=== PATIENT | female | born 1970 | race Hispanic/Latino ===

== ENCOUNTER 2021-08-19 07:36 | Observation (INO) | payer MEDICAID ==
[2021-08-17 16:35] LABS: BASOPHILS % (AUTO) 0.5 % (0.0-5.0); EOSINOPHILS % (AUTO) 1.8 % (0.0-8.0); HEMATOCRIT 40.2 % (36-48); LYMPHOCYTES % (AUTO) 30.5 % (21.0-51.0); MEAN CORPUSCULAR HEMOGLOBIN 31.3 pg (27.0-33.0); MEAN CORPUSCULAR HGB CONC 35.6 g/dL (32.0-36.0); MONOCYTES % (AUTO) 3.3 % (3.0-13.0); NEUTROPHILS % (AUTO) 63.6 % (40.0-77.0); PLATELET COUNT (AUTO) 316 K/uL (130-400); RED BLOOD CELL COUNT(AUTO) 4.57 MIL/uL (4.00-5.50); RED CELL DISTRIBUTION WIDTH 12.6 % (11.0-15.5); WHITE BLOOD COUNT (AUTO) 8.8 K/uL (4.8-10.8)
[2021-08-18 08:50] VITALS: BP 98/64
[~2021-08-19] VITALS: Ht 172.7 cm; Wt 105.4 kg
[2021-08-19] VITALS (19 sets, daily range): BP systolic 82–132; BP diastolic 44–77
[~2021-08-19 07:36] MED LIST: SERT20OR PO
[2021-08-19] MEDS ORDERED: LACTATED RINGERS 1000ML 1,000 ML IV SCH (08:00)
[2021-08-19] MEDS ORDERED: CEFAZOLIN SODIUM 1 GM VIAL IVP ONE (08:00)
[2021-08-19] MEDS ORDERED: LIDOCAINE PF 100MG/5ML (2%) SYRINGE 5ML ONE (11:11)
[2021-08-19] MEDS ORDERED: ONDANSETRON 4MG INJ ONE (11:11)
[2021-08-19] MEDS ORDERED: PROPOFOL 10 MG/ML 20ML VIAL IV ONE ×2 (11:11→12:07)
[2021-08-19] MEDS ORDERED: FENTANYL CITRATE PF 50 MCG/1 ML 5ML AMP IV ONE ×2 (11:12→12:18)
[2021-08-19] MEDS ORDERED: ROCURONIUM 10MG/1ML SYR 10 MG/ML ML ONE (11:12)
[2021-08-19] MEDS ORDERED: MIDAZOLAM HCL 1 MG/ML 2ML VIAL ONE (11:13)
[2021-08-19] MEDS ORDERED: MEPERIDINE-PF 25 MG/ML SYG ONE (11:42)
[2021-08-19] MEDS ORDERED: PHENYLEPHRINE HCL 10 MG/ML 1ML VIAL IV ONE (12:07)
[2021-08-19] MEDS ORDERED: ESTROGENS,CONJUGATED 0.625 MG/GM 42.5 GM VAG CRM VG ONE (12:07)
[2021-08-19] MEDS ORDERED: NEOSTIGMINE 5MG/5ML SYR IV ONE (12:14)
[2021-08-19] MEDS ORDERED: GLYCOPYRROLATE 1 MG/5 ML SYRINGE ONE (12:14)
[2021-08-19] MEDS ORDERED: DOCUSATE SODIUM 100 MG CAP PO PRN (15:00)
[2021-08-19] MEDS ORDERED: BISACODYL 10 MG SUPP.RECT RC PRN (15:00)
[2021-08-19] MEDS ORDERED: HYDROCODONE/ACETAMINOPHEN 5/325 MG TAB PO PRN (15:00)
[2021-08-19] MEDS ORDERED: SIMETHICONE 80 MG TAB.CHEW PO PRN (15:00)
[2021-08-19] MEDS ORDERED: IBUPROFEN 800 MG TAB PO PRN (15:00)
[2021-08-19] MEDS ORDERED: ACETAMINOPHEN WITH CODEINE 1 TAB TAB PO PRN (15:00)
== END 2021-08-19 16:10 | disposition home or self-care (01) ==
LOC: DAH 07:36 → DAHIP 07:37 → DAH 07:37 → WSH 13:50
PROVIDERS: ADMIT Obstetrics & Gynecology; ATTEND Obstetrics & Gynecology
DX: N81.6 Rectocele (principal); Z20.822 Contact with and (suspected) exposure to COVID-19; F31.9 Bipolar disorder, unspecified; F41.1 Generalized anxiety disorder; K21.9 Gastro-esophageal reflux disease without esophagitis; I10 Essential (primary) hypertension; E78.00 Pure hypercholesterolemia, unspecified; J45.909 Unspecified asthma, uncomplicated; E66.9 Obesity, unspecified; Z68.35 Body mass index [BMI] 35.0-35.9, adult; Z79.899 Other long term (current) drug therapy; Z98.890 Other specified postprocedural states
CPT/HCPCS: 36415; 57250; 82948; 85025; 86850; 86900; 86901; 87635; A4215; A4221; A4222; A4223; A4344; A4351; A4663; A5113; A6260; C1769; C9803; G0378 ×3; J0690; J2175; J2250; J2370; J2405; J2710; J3010 ×2; J3490 ×4; J7120; J2001; J2704

== ENCOUNTER 2021-09-01 00:59 | Emergency (ER) | payer MEDICAID ==
[~2021-09-01] VITALS: Ht 172.7 cm; Wt 105.2 kg
[2021-09-01] MEDS ORDERED: ONDANSETRON 4MG INJ IVP ONE (01:30)
[2021-09-01] MEDS ORDERED: LACTATED RINGERS 1000ML 1,000 ML IV ONE ×2 (01:30→02:54)
[2021-09-01] MEDS ORDERED: MORPHINE 4 MG SYG IVP ONE (01:30)
[2021-09-01 01:55] LABS: BASOPHILS % (AUTO) 0.4 % (0.0-5.0); EOSINOPHILS % (AUTO) 4.3 % (0.0-8.0); HEMATOCRIT 34.9 % (36-48); LYMPHOCYTES % (AUTO) 28.1 % (21.0-51.0); MEAN CORPUSCULAR HEMOGLOBIN 30.7 pg (27.0-33.0); MEAN CORPUSCULAR HGB CONC 33.5 g/dL (32.0-36.0); MEAN CORPUSCULAR VOLUME 91.6 fL (79-99); MONOCYTES % (AUTO) 6.8 % (3.0-13.0); PLATELET COUNT (AUTO) 294 K/uL (130-400); RED BLOOD CELL COUNT(AUTO) 3.81 MIL/uL (4.00-5.50); RED CELL DISTRIBUTION WIDTH 12.6 % (11.0-15.5); WHITE BLOOD COUNT (AUTO) 7.5 K/uL (4.8-10.8)
[2021-09-01 02:05] LABS: CREATININE 0.6 mg/dL (0.5-1.5); POTASSIUM 4.2 mmol/L (3.5-5.1)
[2021-09-01 02:09] LABS: ALBUMIN 2.9 g/dL (3.5-5.0); BILIRUBIN,TOTAL 0.1 mg/dL (0.2-1.0); TOTAL PROTEIN, SERUM 5.9 g/dL (6.0-8.3)
[2021-09-01] MEDS ORDERED: ONDANSETRON 4MG INJ ONE (02:52)
[2021-09-01] MEDS ORDERED: MORPHINE 4 MG SYG ONE (02:53)
[2021-09-01 03:45] LABS: APPEARANCE,URINE Clear (CLEAR); BILIRUBIN,URINE Negative (NEGATIVE); COLOR,URINE Yellow (YELLOW); GLUCOSE, URINE (UA) Negative (NEGATIVE); KETONES,URINE Negative (NEGATIVE); LEUKOCYTE ESTERASE ,URINE Moderate (NEGATIVE); NITRATE,URINE Negative (NEGATIVE); OCCULT BLOOD,URINE Trace (NEGATIVE); PROTEIN,URINE Negative (NEGATIVE); UROBILINOGEN,URINE 0.2 mg/dL (0.2-1.0)
[2021-09-01 04:00] LABS: BACTERIA,URINE Rare /HPF (None Seen); RBC,URINE 0-1 /HPF (0-1)
[2021-09-01 04:01] LABS: SQUAMOUS EPITHELIAL CELL,UR Few /HPF (0-2)
[2021-09-01] MEDS ORDERED: CEFTRIAXONE 1G VIAL ONE (04:40)
[2021-09-01] MEDS ORDERED: CEFTRIAXONE 1G VIAL IVP ONE (05:00)
[2021-09-01] MEDS ORDERED: CIPR-278 PO (05:03)
[2021-09-01] MEDS ORDERED: FAMO-136 PO (05:03)
[2021-09-01 05:27] VITALS: BP 116/67
== END 2021-09-01 05:25 | disposition home or self-care (01) ==
LOC: EDH 00:59
DX: N30.00 Acute cystitis without hematuria (principal); R11.10 Vomiting, unspecified; R10.13 Epigastric pain; R10.11 Right upper quadrant pain; E78.00 Pure hypercholesterolemia, unspecified; I10 Essential (primary) hypertension; Z90.49 Acquired absence of other specified parts of digestive tract; Z79.899 Other long term (current) drug therapy
CPT/HCPCS: 36415; 71045; 74176; 80053; 81001; 82550; 83690; 84484; 85025; 87088; 93005; 96361; 96374; 96375; 99285; J0696; J2270; J2405; J7120

== ENCOUNTER 2021-09-17 00:50 | Emergency (ER) | payer MEDICAID ==
[~2021-09-17] VITALS: Ht 172.7 cm; Wt 106.1 kg
[~2021-09-17 00:50] MED LIST changes: +CIPR-278 PO; +FAMO-136 PO
[2021-09-17 00:57] VITALS: BP 101/65
== END 2021-09-17 03:29 | disposition left against medical advice (07) ==
LOC: EDH 00:50
DX: R50.9 Fever, unspecified (principal); J02.9 Acute pharyngitis, unspecified; Z53.21 Procedure and treatment not carried out due to patient leaving prior to being seen by health care provider

== ENCOUNTER 2021-12-28 14:14 | Emergency (ER) | payer MEDICAID ==
[~2021-12-28] VITALS: Ht 172.7 cm; Wt 104.8 kg
[2021-12-28 14:19] VITALS: BP 128/77
== END 2021-12-28 15:49 | disposition left against medical advice (07) ==
LOC: EDH 14:14
DX: R05.9 Cough, unspecified (principal); M54.9 Dorsalgia, unspecified; Z53.21 Procedure and treatment not carried out due to patient leaving prior to being seen by health care provider
CPT/HCPCS: 71045; 87804; 93005

== ENCOUNTER 2022-02-16 23:35 | Emergency (ER) | payer MEDICAID ==
[~2022-02-16] VITALS: Ht 172.7 cm; Wt 104.8 kg
[2022-02-17 00:29] VITALS: BP 121/72
[2022-02-17] MEDS ORDERED: HYDROCODONE/ACETAMINOPHEN 10/325 MG TAB PO ONE (00:30)
[2022-02-17] MEDS ORDERED: KETOROLAC 60 MG VIAL (30MG/ML) IM ONE (00:30)
[2022-02-17] MEDS ORDERED: ACET1TAB97 PO (00:57)
== END 2022-02-17 01:31 | disposition home or self-care (01) ==
LOC: EDH 23:35
DX: S93.402A Sprain of unspecified ligament of left ankle, initial encounter (principal); M25.532 Pain in left wrist; Z79.899 Other long term (current) drug therapy; Z90.49 Acquired absence of other specified parts of digestive tract; W22.8XXA Striking against or struck by other objects, initial encounter; Y93.89 Activity, other specified; Y92.89 Other specified places as the place of occurrence of the external cause; Y99.8 Other external cause status
CPT/HCPCS: 29125; 73110; 73610; 96372; 99284; J1885

== ENCOUNTER 2023-12-27 16:28 | Emergency (ER) | payer MEDICAID ==
[~2023-12-27] VITALS: Ht 172.7 cm; Wt 107.5 kg
[~2023-12-27 16:28] MED LIST changes: +ACET1TAB97 PO
[2023-12-27 17:24] LABS: RAPID GROUP A STREP negative (NEGATIVE)
[2023-12-27 17:28] LABS: SARS-CoV-2, RNA, NAAT NEGATIVE SARS CoV-2 (NEGATIVE)
[2023-12-27 17:43] LABS: INFLUENZA TYPE A NEGATIVE FOR TYPE A (NEG)
[2023-12-27 17:44] LABS: INFLUENZA TYPE B NEGATIVE FOR TYPE B (NEG)
[2023-12-27] MEDS: PREDNISONE 20 MG TABLET PO ONE (17:53)
[2023-12-27 18:17] VITALS: BP 104/64; PULSE 87; RESP 17; O2SAT 99
[2023-12-27] MEDS: CEFTRIAXONE 1G VIAL IM ONE (18:21)
[2023-12-27] MEDS ORDERED: AZIT250T9 PO (18:50)
== END 2023-12-27 19:14 | disposition home or self-care (01) ==
LOC: EDH 16:28
DX: R91.8 Other nonspecific abnormal finding of lung field (principal); Z20.822 Contact with and (suspected) exposure to COVID-19; Z79.899 Other long term (current) drug therapy; Z98.890 Other specified postprocedural states
CPT/HCPCS: 99284; 71045; 87635; 87880; 87804 ×2; 96372; J0696

== ENCOUNTER 2024-06-08 22:46 | Emergency (ER) | payer MEDICAID ==
[~2024-06-08] VITALS: Ht 172.7 cm; Wt 110.2 kg
[~2024-06-08 22:46] MED LIST changes: +AZIT250T9 PO; -SERT20OR PO; +SERT20OR13 PO
--- NOTE | 2024-06-08 22:49 | NUR ---
COVID, FLU AND STREP SWABS COLLECTED AND SENT
[2024-06-08 23:06] VITALS: TEMP 98.2
[2024-06-08 23:14] LABS: RAPID GROUP A STREP negative (NEGATIVE)
[2024-06-08] MEDS: guaiFENesin 600 MG TABLET.ER PO ONE (23:16)
[2024-06-08 23:22] LABS: SARS-CoV-2, RNA, NAAT NEGATIVE SARS CoV-2 (NEGATIVE)
[2024-06-08 23:25] LABS: INFLUENZA TYPE A Negative For Type A (NEGATIVE); INFLUENZA TYPE B Negative For Type B (NEGATIVE)
[2024-06-08] MEDS ORDERED: GUAI-484 PO (23:30)
[2024-06-08] MEDS ORDERED: AZIT250T9 PO (23:30)
[2024-06-08] MEDS ORDERED: BENZ-39 PO (23:30)
[2024-06-08 23:33] VITALS: BP 131/70; PULSE 81; RESP 18; O2SAT 98
[2024-06-08] MEDS ORDERED: METH4TAB3 PO (23:34)
--- NOTE | 2024-06-08 23:34 | ERN ---
General Chief Complaint: Multiple Complaints Stated Complaint: FEVER,COUGH, HEADACHE, BODYACHES Time Seen by MD: 22:51 Time Seen by Midlevel: 22:51 Source: patient History of Present Illness Initial Comments 54-year-old female presenting with flu-like symptoms that have been ongoing for the last three days. is sick with the exact same symptoms. Last reported Tylenol administration was at 11:00 a.m. this morning. Patient admits to the use of tobacco and states she smokes a pack of cigarettes every three days. Allergies: Coded Allergies: No Known Allergies (Verified Allergy, Unknown, 08/17/21) Home Meds Active Scripts Methylprednisolone (Medrol) 4 Mg Tab.ds.pk, 1 TAB PO AD for 6 Days, #21 TAB 0 Refills 6 on day 1 then reduce by one tablet daily until gone Prov:CARLINE ENGLE 06/08/24 Guaifenesin/Pseudoephedrne HCl (Mucinex D ER 1,200-120 mg Tab) 1,200 Mg-120 Mg Tab.er.12h, 1 TAB PO BID for 10 Days, #20 TAB 0 Refills Prov:CARLINE ENGLE 06/08/24 Benzonatate (Tessalon Perles) 100 Mg Cap, 100 MG PO TID for cough for 10 Days, #30 CAP 0 Refills Prov:CARLINE ENGLE 06/08/24 Azithromycin (Azithromycin) 250 Mg Tablet, 1 TAB PO AD for 5 Days, #6 TAB 0 Refills 2 the first day followed by 1 for days 2-5 Prov:CARLINE ENGLE 06/08/24 Azithromycin (Azithromycin) 250 Mg Tablet, 250 MG PO DAILY for 5 Days, #6 TAB Take 1 pack as directed. Prov:NEFTALI BASS CERTIFIED PROCEDURAL CODER 12/27/23 Acetaminophen with Codeine (Acetaminophen-Cod #4 Tablet) 1 Each Tablet, 1 EACH PO TID, #18 TAB Prov:HOLLIS DOMÍNGUEZ MD 02/17/22 Ciprofloxacin HCl (Cipro) 500 Mg Tablet, 1 TAB PO BID for 7 Days, #14 TAB 0 Refills Prov:PAT FRANCES MD 09/01/21 Famotidine (Pepcid) 20 Mg Tablet, 20 MG PO BID, #20 TAB 0 Refills Prov:PAT FRANCES MD 1/4/22 Reported Medications Sertraline HCl (Zoloft) 20 Mg/1 Ml Oral.conc, 20 MG PO DAILY, ML 08/18/21 Past Medical History Past Medical History: No Pertinent History, High Cholesterol, Hypertension Past Surgical History: Cholecystectomy Family History Family History: Negative Social History Social History: Negative, Lives with family Female( History) History: Not Applicable ROS Dictation CONSTITUTIONAL: Negative except for HPI HEAD/FACE: Negative except for HPI EENT: Negative except for HPI RESPIRATORY: Negative except for HPI GASTROINTESTINAL/ABDOMINAL: Negative except for HPI GENITOURINARY: Negative except for HPI MUSCULOSKELETAL: Negative except for HPI INTEGUMENTARY: Negative except for HPI NEUROLOGICAL/PSYCH: Negative except for HPI HEMATOLOGIC/LYMPHATIC: Negative except for HPI All Systems Negative, Except as noted above. 13 point review of systems assessed and all negative except for above. Physical Exam Physical Exam Dictation Vital Signs reviewed General Appearance: Alert, oriented x 3, no acute distress, well developed, nourished. Head and Face: non-traumatic. Eyes: PERRL, pink conjunctivas, eyelid no trauma, anterior chamber with arcus senilis. Ears: Pinnas intact and no signs of trauma or erythema ear canals clear and no discharge TM no erythema Nose: No discharge, no bleeding. Oropharynx: Mouth normal, tongue pink, pharynx clear,no erythema, tonsils no exudates, no abscesses noted, mucous membrane moist Neck: Supple, non-tender, no thyromegaly, no masses, no JVD, no bruits Breast:Deferred Chest:No tenderness, no crepitus, no paradoxical movement, no retractions Lungs:Clear, well-ventilated, symmetric, no rales, no wheezing, no rhonchi, no stridor, good breath sounds bilaterally Heart: Regular rate, regular rhythm, no murmur, no gallops Vascular: no peripheral edema, Abdomen: Soft, positive bowel sounds, nondistended, no guarding, nontender, no rebound, no masses no hepatomegaly, no splenomegaly, no England's sign, no hernias. Rectal: Deferred Genital: Deferred Neurological: Normal speech, motor function intact, sensory function intact Musculoskeletal: Neck nontender, full range of motion, back nontender, full range of motion, Extremities: nontender, full range of motion Skin: Color pink, dry, no turgor, no rash, no lacerations, no abrasions, no contusions. Lymphatic: Deferred Results Laboratory and Microbiology Lab and Micro Result Laboratory Tests Test 06/08/24 22:50 Influenza Type A Antigen Negative For Type A Influenza Type B Antigen Negative For Type B SARS-CoV-2, RNA, NAAT NEGATIVE SARS CoV-2 Group A Streptococcus Rapid negative (NEGATIVE) Labs Reviewed?: Yes MDM MDM: Differential diagnosis: Pneumonia, viral syndrome, pneumonitis, acute bronchitis, upper respiratory infection There are no social concerns with this patient. Prescription drug management Prescriptions will include: Mucinex, azithromycin, Medrol pack, Tessalon Perles Medical management and examination interpretation discussions were had by me with other qualified healthcare professionals as indicated for the patient's care. ED Course Orders Procedure Category Date Status Time Covid Rna Naat LAB 06/08/24 Complete 22:48 Influenza Type A & B, LAB 06/08/24 Complete Rapid 22:48 Rapid (Group A Strep) LAB 06/08/24 Complete 22:48 Chest 1vw RAD 06/08/24 Taken 22:48 Guaifenesin 600 Mg PHA 06/08/24 Complete Tablet.Er (Mucinex 60 23:30 Current Medications Medications (Trade) Dose Ordered Sig/Nils Route PRN Reason Start Time Stop Time Status Last Admin Dose Admin Guaifenesin (MUCinex 600 MG TABLET.ER) 600 mg ONCE ONCE PO 06/08/24 23:30 06/08/24 23:31 DC 06/08/24 23:16 Vital Signs Date Time Temp Pulse Resp B/P (MAP) Pulse Ox O2 Delivery O2 Flow Rate FiO2 06/08/24 23:33 81 18 131/70 98 Room Air* 0 06/08/24 23:06 98.2 88 18 134/75 98 Room Air* 0 21 06/08/24 22:48 98.1 91 16 123/86 98 Room Air DX & DISP Disposition: Discharge Departure Impression: Primary Impression: Pneumonitis Condition: Stable Scripts Methylprednisolone (Medrol) 4 Mg Tab.ds.pk 1 TAB PO AD for 6 Days, #21 TAB 0 Refills 6 on day 1 then reduce by one tablet daily until gone Prov: CARLINE ENGLE 06/08/24 Guaifenesin/Pseudoephedrne HCl (Mucinex D ER 1,200-120 mg Tab) 1,200 Mg-120 Mg Tab.er.12h 1 TAB PO BID for 10 Days, #20 TAB 0 Refills Prov: CARLINE ENGLE 06/08/24 Benzonatate (Tessalon Perles) 100 Mg Cap 100 MG PO TID for cough for 10 Days, #30 CAP 0 Refills Prov: CARLINE ENGLE 06/08/24 Azithromycin (Azithromycin) 250 Mg Tablet 1 TAB PO AD for 5 Days, #6 TAB 0 Refills 2 the first day followed by 1 for days 2-5 Prov: CARLINE ENGLE 06/08/24 Additional Instructions: You have tested negative for flu A, flu B, COVID, and strep. Your chest x-ray does not show any evidence of pneumonia. Please follow up with your PCP in 2-3 days for repeat evaluation. You may take Tylenol and Motrin for fever. Referrals: RAJIV STUBBS MD (PCP) Time of Disposition: 23:28 I have reviewed the case, and I agree with, Diagnosis and Plan CARLINE ENGLE Jun 08, 2024 23:34
--- NOTE | 2024-06-09 08:41 | HMCIMG ---
CHEST 1VW HISTORY: Cough COMPARISON: 12/27/2023 FINDINGS: A frontal projection of the chest was obtained. No acute pulmonary infiltrates is seen. The heart is normal in size. Prominent interstitial markings are seen. No evidence of aortic calcification is seen. IMPRESSION: 1. No acute pulmonary infiltrate is seen.
== END 2024-06-08 23:48 | disposition home or self-care (01) ==
LOC: EDH 22:46
DX: J98.4 Other disorders of lung (principal); Z20.822 Contact with and (suspected) exposure to COVID-19; E78.00 Pure hypercholesterolemia, unspecified; I10 Essential (primary) hypertension; Z90.49 Acquired absence of other specified parts of digestive tract; Z79.899 Other long term (current) drug therapy
CPT/HCPCS: 71045; 87635; 87804; 87880

== ENCOUNTER 2024-07-24 02:50 | Emergency (ER) | payer MEDICAID ==
[~2024-07-24] VITALS: Ht 172.7 cm; Wt 110.2 kg
[~2024-07-24 02:50] MED LIST changes: +BENZ-39 PO; +GUAI-484 PO; +METH4TAB3 PO
--- NOTE | 2024-07-24 03:10 | ERN ---
General Chief Complaint: Flu Symptoms Stated Complaint: FLU LIKE SYMPTOMS Time Seen by MD: 02:52 History of Present Illness Initial Comments Ms. Kohler is a very pleasant 54-year-old female with a past medical history of GERD, depression obesity and hypertension who presents today with a chief complaint of fever chills had an URI symptoms for several days. Patient reports that for the last 2 days she has been feeling poorly. She has been having body aches, fever and chills. Patient states that she had not been able to take any medicine. She denies any sick contacts. Allergies: Coded Allergies: No Known Allergies (Verified Allergy, Unknown, 08/17/21) Home Meds Active Scripts Amoxicillin/Potassium Clav (Amox Tr-K Clv 875-125 mg Tab) 875 Mg-125 Mg Tablet, 1 TAB PO BID for 10 Days, #20 TAB 0 Refills Prov:VINH PAUL DO 07/24/24 Methylprednisolone (Medrol) 4 Mg Tab.ds.pk, 1 TAB PO AD for 6 Days, #21 TAB 0 Refills 6 on day 1 then reduce by one tablet daily until gone Prov:CARLINE ENGLE 06/08/24 Guaifenesin/Pseudoephedrne HCl (Mucinex D ER 1,200-120 mg Tab) 1,200 Mg-120 Mg Tab.er.12h, 1 TAB PO BID for 10 Days, #20 TAB 0 Refills Prov:CARLINE ENGLE 06/08/24 Benzonatate (Tessalon Perles) 100 Mg Cap, 100 MG PO TID for cough for 10 Days, #30 CAP 0 Refills Prov:CARLINE ENGLE 06/08/24 Azithromycin (Azithromycin) 250 Mg Tablet, 1 TAB PO AD for 5 Days, #6 TAB 0 Refills 2 the first day followed by 1 for days 2-5 Prov:CARLINE ENGLE 06/08/24 Azithromycin (Azithromycin) 250 Mg Tablet, 250 MG PO DAILY for 5 Days, #6 TAB Take 1 pack as directed. Prov:NEFTALI BASS 12/27/23 Acetaminophen with Codeine (Acetaminophen-Cod #4 Tablet) 1 Each Tablet, 1 EACH PO TID, #18 TAB Prov:HOLLIS DOMÍNGUEZ MD 02/17/22 Ciprofloxacin HCl (Cipro) 500 Mg Tablet, 1 TAB PO BID for 7 Days, #14 TAB 0 Refills Prov:PAT FRANCES MD 09/01/21 Famotidine (Pepcid) 20 Mg Tablet, 20 MG PO BID, #20 TAB 0 Refills Prov:PAT FRANCES MD 09/01/21 Reported Medications Sertraline HCl (Zoloft) 20 Mg/1 Ml Oral.conc, 20 MG PO DAILY, ML 08/18/21 Past Medical History Past Medical History: No Pertinent History, High Cholesterol, Hypertension Past Surgical History: Cholecystectomy Family History Family History: Negative Social History Social History: Negative, Lives with family Female( History) History: Not Applicable ROS Dictation Constitutional: Positive for fever and chills Eyes: Negative for injury, pain,redness, and discharge ENT: Negative for injury,pain or swelling Cardiovascular: Negative for chest pain, palpitations, and edema Respiratory: Positive for cough and congestion Abdomen/GI: Negative for abdominal pain, nausea, vomiting, diarrhea, and constipation Back: Negative for injury and pain : Negative for injury, bleeding and discharge MS/Extremity: Negative for injury and deformity Skin: Negative for rash, and discoloration Neuro: Positive for weakness Psych: Negative for suicide ideation, homicidal ideation, and hallucinations Physical Exam Physical Exam Dictation General: Lethargic disheveled female who appears in no acute distress Head/Face: Normocephalic, atraumatic Eyes: PERRL, EOMI, vision at baseline ENT: oral cavity clear Neck: Trachea midline, supple, no nuchal rigidity Cardiovascular: RRR, normal S1/S2, No MRGs, no JVD Respiratory: Diminished breath sounds Abdomen: Soft, non-tender, non-distended, normal bowel sounds, no guarding or rebound. Skin: Dry mucous membranes MS/Extremity: Pulses equal Neuro: COAx4, GCS 15 Psych: Normal behavior, mood, and affect normal Results Laboratory and Microbiology Lab and Micro Result Laboratory Tests Test 07/24/24 03:10 07/24/24 03:26 Influenza Type A Antigen Negative For Type A Influenza Type B Antigen Negative For Type B SARS-CoV-2, RNA, NAAT NEGATIVE SARS CoV-2 Group A Streptococcus Rapid negative (NEGATIVE) White Blood Count 12.4 K/uL (4.8-10.8) H Red Blood Count 4.09 MIL/uL (4.00-5.50) Hemoglobin 12.8 g/dL (12.0-16.0) Hematocrit 37.6 % (36-48) Mean Corpuscular Volume 91.9 fL (79-99) Mean Corpuscular Hemoglobin 31.3 pg (27.0-33.0) Mean Corpuscular Hemoglobin Concent 34.0 g/dL (32.0-36.0) Red Cell Distribution Width 12.7 % (11.0-15.5) Platelet Count 253 K/uL (130-400) Mean Platelet Volume 9.6 fL (7.5-10.5) Immature Granulocyte % (Auto) 0.5 % (0-1) Neutrophils (%) (Auto) 76.0 % (40.0-77.0) Lymphocytes (%) (Auto) 16.6 % (21.0-51.0) L Monocytes (%) (Auto) 6.5 % (3.0-13.0) Eosinophils (%) (Auto) 0.2 % (0.0-8.0) Basophils (%) (Auto) 0.2 % (0.0-5.0) Neutrophils # (Auto) 9.5 K/uL (1.8-7.7) H Lymphocytes # (Auto) 2.1 K/uL (1.0-4.8) Monocytes # (Auto) 0.8 K/uL (0.1-1.0) Eosinophils # (Auto) 0.03 K/uL (0.00-0.70) Basophils # (Auto) 0.02 K/uL (0.00-0.20) Absolute Immature Granulocyte (auto 0.06 K/uL (0-1) Nucleated Red Blood Cells 0.0 % (0.0-0.19) Sodium Level 136 mmol/L (136-145) Potassium Level 3.3 mmol/L (3.5-5.1) L Chloride Level 102 mmol/L (101-111) Carbon Dioxide Level 25 mmol/L (21-32) Blood Urea Nitrogen 8 mg/dL (7-18) Creatinine 0.7 mg/dL (0.5-1.0) Glomerular Filtration Rate Calc 102 mL/min (>90) Random Glucose 116 mg/dL (70-105) H Total Calcium 8.1 mg/dL (8.5-10.1) L MDM I took over care at 7:[address] scan of the neck CC: Sore throat, flu-like illness. Comorbidities: Depression obesity hypertension and GERD Limitations by social determinants: None Differential diagnosis includes viral pharyngitis, strep pharyngitis, viral type syndrome, pneumonia, abscess, other Vital signs: Febrile 101.1 in the ER this improved. Other vital signs stable and remained stable. Labs show leukocytosis 12.4 K. No shift. No bands. Chemistry unremarkable Flu SARS COVID negative CXR per my independent interpretation: No focal infiltrates Treatment in ED: 1 L normal saline, DuoNeb, Tylenol, methylprednisolone, Rocephin. I ordered a CT scan of the soft tissue neck since the patient does have some swelling to the throat, wanted to make sure there is not an abscess there. I was informed that the patient did not want to stay for the study. She is p.o. tolerant swallowing and stable. Her vital signs have improved. We will discharge with some pharyngitis and recommend PCP follow up. She understands the risks of not getting this study, I did have a long conversation that we can not rule out an abscess but she will return to the emergency department if she does not improve. ED Course Orders Procedure Category Date Status Time Influenza Type A & B, LAB 07/24/24 Complete Rapid 03:10 Covid Rna Naat LAB 07/24/24 Complete 03:10 Rapid (Group A Strep) LAB 07/24/24 Complete 03:10 Cbc With Differential LAB 07/24/24 Complete 03:10 Chest 1vw RAD 07/24/24 Resulted 03:10 0.9%Nacl 1000ml (Ns PHA 07/24/24 Complete 1000ml) 03:30 Ipratropium/Albuterol PHA 07/24/24 Complete Neb (Duoneb) 03:30 Basic Metabolic Panel LAB 07/24/24 Complete 03:10 Acetaminophen 500mg PHA 07/24/24 Complete Tab (Tylenol 500mg T 03:30 0.9%Nacl 1000ml (Ns PHA 07/24/24 Complete 1000ml) 04:30 Methylprednisolone PHA 07/24/24 Complete Succ 125mg (Solu-Medr 05:00 Ceftriaxone 2gm Vial PHA 07/24/24 Complete (Rocephin 2gm Inj) 05:00 Iohexol (Omnipaque) PHA 07/24/24 Complete 07:51 Iohexol (Omnipaque) PHA 07/24/24 Complete 07:53 Current Medications Medications (Trade) Dose Ordered Sig/Nils Route PRN Reason Start Time Stop Time Status Last Admin Dose Admin Acetaminophen (TYLenol 500MG TAB) 500 mg ONCE ONCE PO 07/24/24 03:30 07/24/24 04:02 DC 07/24/24 03:19 Albuterol (DUOneb) 1 udvial ONCE ONCE IH 07/24/24 03:30 07/24/24 04:02 DC 07/24/24 03:34 Ceftriaxone Sodium (Rocephin 2gm Inj) 2 gm ONCE ONCE IVPB 07/24/24 05:00 07/24/24 05:01 DC 07/24/24 06:11 Iohexol (Omnipaque) 50 ml STK-MED ONCE IV 07/24/24 07:53 07/24/24 07:53 DC Iohexol (Omnipaque) 75 ml STK-MED ONCE IV 07/24/24 07:51 07/24/24 07:52 DC Methylprednisolone Sodium Succinate (Solu-medROL 125MG) 125 mg ONCE ONCE IVP 07/24/24 05:00 07/24/24 05:01 DC 07/24/24 06:11 Sodium Chloride 639 ml @ 213 mls/hr ONCE ONCE IV 07/24/24 04:30 07/24/24 07:29 DC 07/24/24 04:44 Sodium Chloride 1,000 ml @ 125 mls/hr ONCE ONCE IV 07/24/24 03:30 07/24/24 08:26 DC 07/24/24 03:19 Vital Signs Date Time Temp Pulse Resp B/P (MAP) Pulse Ox O2 Delivery O2 Flow Rate FiO2 07/24/24 07:49 98.4 87 16 118/59 97 Room Air* 0 07/24/24 06:32 98.4 85 18 102/67 96 Room Air* 0 07/24/24 06:31 101.1 98 18 135/65 99 Room Air* 0 21 07/24/24 03:34 88 18 07/24/24 03:19 101.1 07/24/24 02:51 100.0 91 18 110/78 94 Nasal Cannula 2.0 DX & DISP Disposition: Discharge Departure Impression: Primary Impression: Pharyngitis Condition: Stable Scripts Amoxicillin/Potassium Clav (Amox Tr-K Clv 875-125 mg Tab) 875 Mg-125 Mg Tablet 1 TAB PO BID for 10 Days, #20 TAB 0 Refills Prov: BEVERLYVINH Valentino DO 07/24/24 Additional Instructions: Your symptoms are consistent with pharyngitis. Your lab work (CBC, BMP, flu and COVID swabs, strep throat swab ) show mild elevation of the white blood cell count consistent with inflammation. Otherwise your lab work is unremarkable. You did have a fever here in the ER. Your other vital signs have been stable. Your chest x-ray is unremarkable. You received 1 L of normal saline IV, 2 g of Rocephin, and 125 mg of Solu- Medrol in the IV. He was also received a DuoNeb breathing treatment and a dose of Tylenol in the ER. For fever, alternate 1000 mg of Tylenol or 600 mg of ibuprofen every 4 hours. These medications are [id number]. I have prescribed Augmentin, which is an antibiotic. Please take as prescribed. Complete the entire course of antibiotics. As we discussed, due to the swelling, you may have an abscess in the back of your throat. We did not get the CT scan performed today. If your symptoms do not improve or appear to get worse please return to the emergency department so that we can complete the entire examination. Please follow up with your primary doctor. Referrals: RAJIV STUBBS MD (PCP) JHONATAN BERNAL MD Jul 24, 2024 03:10 VINH PAUL DO Jul 24, 2024 08:13
[2024-07-24] MEDS: acetaMINOPHEN 500 MG TABLET PO ONE (03:19)
[2024-07-24] MEDS: 0.9%NACL 1000ML 1,000 ML IV ONE (03:19)
[2024-07-24 03:24] LABS: RAPID GROUP A STREP negative (NEGATIVE)
[2024-07-24 03:32] LABS: SARS-CoV-2, RNA, NAAT NEGATIVE SARS CoV-2 (NEGATIVE)
[2024-07-24 03:34] VITALS: PULSE 88; RESP 18
[2024-07-24] MEDS: IpraTROPium/alBUTERol SULFATE 3 ML SOLUTION IH ONE (03:34)
[2024-07-24 03:35] LABS: INFLUENZA TYPE A Negative For Type A (NEGATIVE); INFLUENZA TYPE B Negative For Type B (NEGATIVE)
[2024-07-24 03:36] LABS: BASOPHILS # (AUTO) 0.02 K/uL (0.00-0.20); BASOPHILS % (AUTO) 0.2 % (0.0-5.0); EOSINOPHILS # (AUTO) 0.03 K/uL (0.00-0.70); EOSINOPHILS % (AUTO) 0.2 % (0.0-8.0); HEMATOCRIT 37.6 % (36-48); IMMATURE GRANULOCYTE ABSOLUTE 0.06 K/uL (0-1); LYMPHOCYTES # (AUTO) 2.1 K/uL (1.0-4.8); LYMPHOCYTES % (AUTO) 16.6 % (21.0-51.0); MEAN CORPUSCULAR HEMOGLOBIN 31.3 pg (27.0-33.0); MEAN CORPUSCULAR VOLUME 91.9 fL (79-99); MONOCYTES # (AUTO) 0.8 K/uL (0.1-1.0); MONOCYTES % (AUTO) 6.5 % (3.0-13.0); NEUTROPHILS # (AUTO) 9.5 K/uL (1.8-7.7); PLATELET COUNT (AUTO) 253 K/uL (130-400); RED BLOOD CELL COUNT(AUTO) 4.09 MIL/uL (4.00-5.50); RED CELL DISTRIBUTION WIDTH 12.7 % (11.0-15.5); WHITE BLOOD COUNT (AUTO) 12.4 K/uL (4.8-10.8)
[2024-07-24 03:43] LABS: CREATININE 0.7 mg/dL (0.5-1.0); POTASSIUM 3.3 mmol/L (3.5-5.1)
[2024-07-24 04:08] VITALS: TEMP 101.2
[2024-07-24] MEDS: [UNRECOGNIZED DRUG - OTHER] IV ONE (04:44)
[2024-07-24] MEDS: CEFTRIAXONE 2GM VIAL IVPB ONE (06:11)
[2024-07-24] MEDS: Solu-medROL 125MG VIAL IVP ONE (06:11)
--- NOTE | 2024-07-24 06:12 | NUR ---
PER ER [facility] TO USE CENTRAL LINE
[2024-07-24 07:49] VITALS: BP 118/59; PULSE 87; RESP 16; TEMP 98.5; O2SAT 97
[2024-07-24] MEDS ORDERED: IOHEXOL-350 75 ML VIAL IV ONE (07:51)
[2024-07-24] MEDS ORDERED: IOHEXOL-350 50ML VIAL IV ONE (07:53)
[2024-07-24] MEDS ORDERED: AMOX1TAB16 PO (08:18)
--- NOTE | 2024-07-24 08:25 | NUR ---
PATIENT SELF REMOVED IV, LEFT WITHOUT DISCHARGE PAPER WORK OR NOTIFYING STAFF. IV FOUND ON STRETCHER. PT NOT IN RESTROOM OR ER LOBBY.
--- NOTE | 2024-07-24 08:46 | HMCIMG ---
CHEST 1VW REASON: Dyspnea/SOB COMPARISON: 06/08/2024 FINDINGS: Single view of the chest was obtained. Lungs are clear. Heart size is normal. There is no pulmonary vascular congestion. Mediastinum and bony thorax appear unremarkable. IMPRESSION: 1. Normal single view chest x-ray.
== END 2024-07-24 08:26 | disposition home or self-care (01) ==
LOC: EDH 02:50
DX: J02.9 Acute pharyngitis, unspecified (principal); E66.9 Obesity, unspecified; F32.A Depression, unspecified; I10 Essential (primary) hypertension; K21.9 Gastro-esophageal reflux disease without esophagitis; Z20.822 Contact with and (suspected) exposure to COVID-19; Z79.899 Other long term (current) drug therapy; Z90.49 Acquired absence of other specified parts of digestive tract
CPT/HCPCS: 99284; 96374; 96361; 71045; 87635; 96375; 80048; 85025; 87880; 87804 ×2; 36415; 94640; J7030 ×2; J2919; J0696; Q9967

== ENCOUNTER → 2025-03-13 | Emergency (ER) | payer MEDICAID ==
[~2025-03-13] VITALS: Ht 172.7 cm; Wt 103.4 kg
[~2025-03-13] MED LIST changes: +AMOX1TAB16 PO; +TRIAMCINOLONE ACETONIDE 10MG/1ML 5ML VIAL IJ ONE
[2025-03-13 01:42] VITALS: BP 118/69; PULSE 82; RESP 20; TEMP 97.7
[2025-03-13 02:11] LABS: SARS-CoV-2, RNA, NAAT NEGATIVE SARS CoV-2 (NEGATIVE)
[2025-03-13 02:12] LABS: RAPID GROUP A STREP negative (NEGATIVE)
[2025-03-13 02:18] LABS: INFLUENZA TYPE A Negative For Type A (NEGATIVE); INFLUENZA TYPE B Negative For Type B (NEGATIVE)
[2025-03-13] MEDS: AMOX/CLAV 875/125MG TAB PO ONE (02:32)
[2025-03-13] MEDS: TRIAMCINOLONE ACETONIDE 40 MG/ML IJ ONE (02:48)
--- NOTE | 2025-03-13 04:03 | ERN ---
General Chief Complaint: Sore Throat Stated Complaint: C/O COUGH,CONGESTION,SORE THROAT,EARACHES Time Seen by MD: 02:21 History of Present Illness Initial Comments Mrs Kohler is a 54-year-old female with significant past medical history of depression anxiety who presents today with a chief complaint of sore throat and periauricular swelling. Patient reports that she has been feeling poorly in is concern for a viral illness. Patient was swabbed Allergies: Coded Allergies: No Known Allergies (Verified Allergy, Unknown, 08/17/21) Home Meds Active Scripts Amoxicillin/Potassium Clav (Amox Tr-K Clv 875-125 mg Tab) 875 Mg-125 Mg Tablet, 1 TAB PO BID for 10 Days, #20 TAB 0 Refills Prov:VINH PAUL DO 07/24/24 Methylprednisolone (Medrol) 4 Mg Tab.ds.pk, 1 TAB PO AD for 6 Days, #21 TAB 0 Refills 6 on day 1 then reduce by one tablet daily until gone Prov:CARLINE ENGLE 06/08/24 Guaifenesin/Pseudoephedrne HCl (Mucinex D ER 1,200-120 mg Tab) 1,200 Mg-120 Mg Tab.er.12h, 1 TAB PO BID for 10 Days, #20 TAB 0 Refills Prov:CARLINE ENGLE 06/08/24 Benzonatate (Tessalon Perles) 100 Mg Cap, 100 MG PO TID for cough for 10 Days, #30 CAP 0 Refills Prov:CARLINE ENGLE 06/08/24 Azithromycin (Azithromycin) 250 Mg Tablet, 1 TAB PO AD for 5 Days, #6 TAB 0 Refills 2 the first day followed by 1 for days 2-5 Prov:CARLINE ENGLE 06/08/24 Azithromycin (Azithromycin) 250 Mg Tablet, 250 MG PO DAILY for 5 Days, #6 TAB Take 1 pack as directed. Prov:NEFTALI BASS 12/27/23 Acetaminophen with Codeine (Acetaminophen-Cod #4 Tablet) 1 Each Tablet, 1 EACH PO TID, #18 TAB Prov:HOLLIS DOMÍNGUEZ MD 02/17/22 Ciprofloxacin HCl (Cipro) 500 Mg Tablet, 1 TAB PO BID for 7 Days, #14 TAB 0 Refills Prov:PAT FRANCES MD 09/01/21 Famotidine (Pepcid) 20 Mg Tablet, 20 MG PO BID, #20 TAB 0 Refills Prov:PTA FRANCES MD 09/01/21 Reported Medications Sertraline HCl (Zoloft) 20 Mg/1 Ml Oral.conc, 20 MG PO DAILY, ML 08/18/21 Past Medical History Past Medical History: High Cholesterol, Hypertension Past Surgical History: Cholecystectomy Family History Family History: Negative Social History Social History: Negative, Lives with family Female( History) History: Not Applicable ROS Dictation Constitutional: Negative for fever,chills, and weight loss Eyes: Negative for injury, pain,redness, and discharge ENT: Throat swelling Cardiovascular: Negative for chest pain, palpitations, and edema Respiratory: Negative for shortness of breath, cough, and wheezing, Abdomen/GI: Negative for abdominal pain, nausea, vomiting, diarrhea, and constipation Back: Negative for injury and pain : Negative for injury, bleeding and discharge MS/Extremity: Negative for injury and deformity Skin: Negative for rash, and discoloration Neuro: Negative for headache, weakness, numbness, tingling, and seizure Psych: Negative for suicide ideation, homicidal ideation, and hallucinations Physical Exam Physical Exam Dictation General: awake, alert, NAD Head/Face: Normocephalic, atraumatic Eyes: PERRL, EOMI, vision at baseline ENT: Periauricular swelling Neck: Trachea midline, supple, no nuchal rigidity Cardiovascular: RRR, normal S1/S2, No MRGs, no JVD Respiratory: CTAB, no respiratory distress, No rales or wheezes Abdomen: Soft, non-tender, non-distended, normal bowel sounds, no guarding or rebound. Skin: Warm, dry, normal turgor, no rash MS/Extremity: Pulses equal, no cyanosis, neurovascular intact, FROM Neuro: COAx4, GCS 15, strength 5/5, CN 2-12 intact, normal cerebellar exam, normal gait, Psych: Normal behavior, mood, and affect normal Results Laboratory and Microbiology Lab and Micro Result Laboratory Tests Test 03/13/25 01:51 Influenza Type A Antigen Negative For Type A Influenza Type B Antigen Negative For Type B SARS-CoV-2, RNA, NAAT NEGATIVE SARS CoV-2 Group A Streptococcus Rapid negative (NEGATIVE) MDM Patient was swabbed and given steroids and antibiotics. Patient upon further evaluation had eloped. ED Course Orders Procedure Category Date Status Time Covid Rna Naat LAB 03/13/25 Complete 01:48 Influenza Type A & B, LAB 03/13/25 Complete Rapid 01:48 Rapid (Group A Strep) LAB 03/13/25 Complete 01:48 Amox/Clav 875/125mg PHA 03/13/25 Complete Tab (Augmentin 875-1 02:30 Acetaminophen 500mg PHA 03/13/25 Complete Tab (Tylenol 500mg T 02:30 Triamcinolone PHA 03/13/25 Complete Acetonide (Kenalog-10) 03:00 Triamcinolone PHA 03/13/25 Complete Acetonide 03:00 Current Medications Medications (Trade) Dose Ordered Sig/Nils Route PRN Reason Start Time Stop Time Status Last Admin Dose Admin Acetaminophen (TYLenol 500MG TAB) 500 mg ONCE ONCE PO 03/13/25 02:30 03/13/25 02:31 DC 03/13/25 02:32 Amoxicillin/ Clavulanate Potassium (Augmentin 875-125 Tablet) 1 each ONCE ONCE PO 03/13/25 02:30 03/13/25 02:31 DC 03/13/25 02:32 Triamcinolone Acetonide (Kenalog-10) 40 mg ONCE ONCE IJ 03/13/25 03:00 03/13/25 02:37 DC Triamcinolone Acetonide (Triamcinolone Acetonide) 40 mg ONCE ONCE IJ 03/13/25 03:00 03/13/25 03:01 DC 03/13/25 02:48 Vital Signs Date Time Temp Pulse Resp B/P (MAP) Pulse Ox O2 Delivery O2 Flow Rate FiO2 03/13/25 01:42 97.7 82 20 118/69 100 Room Air DX & DISP Disposition: Other(Comment) Departure Impression: Primary Impression: Pharyngitis Condition: Stable Referrals: RAJIV STUBBS MD (PCP) JHONATAN BERNAL MD Mar 13, 2025 04:03
== END ==
LOC: EDH 01:41
DX: J02.9 Acute pharyngitis, unspecified (principal); E78.00 Pure hypercholesterolemia, unspecified; I10 Essential (primary) hypertension; Z79.899 Other long term (current) drug therapy; Z90.49 Acquired absence of other specified parts of digestive tract; Z20.822 Contact with and (suspected) exposure to COVID-19
CPT/HCPCS: 99283; 87635; 87880; 87804 ×2; J3301

== ENCOUNTER 2025-03-24 03:15 | Emergency (ER) | payer MEDICAID ==
[~2025-03-24] VITALS: Ht 172.7 cm; Wt 100.2 kg
[~2025-03-24 03:15] MED LIST changes: -TRIAMCINOLONE ACETONIDE 10MG/1ML 5ML VIAL IJ ONE
--- NOTE | 2025-03-24 03:19 | NUR ---
COVID AND FLU SWABS COLLECTED AND SENT
--- NOTE | 2025-03-24 03:21 | NUR ---
REPORT TO FAUSTO SUÁREZ
[2025-03-24 03:40] LABS: SARS-CoV-2, RNA, NAAT NEGATIVE SARS CoV-2 (NEGATIVE)
--- NOTE | 2025-03-24 03:45 | ERN ---
ED Note History of Present Illness Stated Complaint: COUGH, RUNNY NOSE, WANTS TO BE TESTED FOR COVID Chief Complaint: Flu Symptoms Time Seen by MD: 03:44 Allergies: Coded Allergies: No Known Allergies (Verified Allergy, Unknown, 08/17/21) Home Meds Active Scripts Amoxicillin/Potassium Clav (Amox Tr-K Clv 875-125 mg Tab) 875 Mg-125 Mg Tablet, 1 TAB PO BID for 10 Days, #20 TAB 0 Refills Prov:VINH PAUL DO 07/24/24 Methylprednisolone (Medrol) 4 Mg Tab.ds.pk, 1 TAB PO AD for 6 Days, #21 TAB 0 Refills 6 on day 1 then reduce by one tablet daily until gone Prov:CARLINE ENGLE 06/08/24 Guaifenesin/Pseudoephedrne HCl (Mucinex D ER 1,200-120 mg Tab) 1,200 Mg-120 Mg Tab.er.12h, 1 TAB PO BID for 10 Days, #20 TAB 0 Refills Prov:CARLINE ENGLE 06/08/24 Benzonatate (Tessalon Perles) 100 Mg Cap, 100 MG PO TID for cough for 10 Days, #30 CAP 0 Refills Prov:CARLINE ENGLE 06/08/24 Azithromycin (Azithromycin) 250 Mg Tablet, 1 TAB PO AD for 5 Days, #6 TAB 0 Refills 2 the first day followed by 1 for days 2-5 Prov:CARLINE ENGLE 06/08/24 Azithromycin (Azithromycin) 250 Mg Tablet, 250 MG PO DAILY for 5 Days, #6 TAB Take 1 pack as directed. Prov:NEFTALI BASS 12/27/23 Acetaminophen with Codeine (Acetaminophen-Cod #4 Tablet) 1 Each Tablet, 1 EACH PO TID, #18 TAB Prov:HOLLIS DOMÍNGUEZ MD 02/17/22 Ciprofloxacin HCl (Cipro) 500 Mg Tablet, 1 TAB PO BID for 7 Days, #14 TAB 0 Refills Prov:PAT FRANCES MD 09/01/21 Famotidine (Pepcid) 20 Mg Tablet, 20 MG PO BID, #20 TAB 0 Refills Prov:PAT FRANCES MD 09/01/21 Reported Medications Sertraline HCl (Zoloft) 20 Mg/1 Ml Oral.conc, 20 MG PO DAILY, ML 08/18/21 Past Medical History Past Medical History: High Cholesterol, Hypertension Surgical History: Cholecystectomy Family History: Negative Social History: Negative, Lives with family History: Not Applicable Review of System Dictation Constitutional: Negative for fever,chills, and weight loss Eyes: Negative for injury, pain,redness, and discharge ENT: Negative for injury,pain or swelling Cardiovascular: Negative for chest pain, palpitations, and edema Respiratory: Negative for shortness of breath, cough, and wheezing, Abdomen/GI: Negative for abdominal pain, nausea, vomiting, diarrhea, and constipation Back: Negative for injury and pain : Negative for injury, bleeding and discharge MS/Extremity: Negative for injury and deformity Skin: Negative for rash, and discoloration Neuro: Negative for headache, weakness, numbness, tingling, and seizure Psych: Negative for suicide ideation, homicidal ideation, and hallucinations Initial Vital Sign VS Vital Signs Date Time Temp Pulse Resp B/P (MAP) Pulse Ox O2 Delivery O2 Flow Rate FiO2 03/24/25 03:17 97.3 83 18 118/68 98 Room Air Physical Exam Dictation General: awake, alert, NAD Head/Face: Normocephalic, atraumatic Eyes: PERRL, EOMI, vision at baseline ENT: oral cavity clear, TMs clear, no signs of infection Neck: Trachea midline, supple, no nuchal rigidity Cardiovascular: RRR, normal S1/S2, No MRGs, no JVD Respiratory: CTAB, no respiratory distress, No rales or wheezes Abdomen: Soft, non-tender, non-distended, normal bowel sounds, no guarding or rebound. Skin: Warm, dry, normal turgor, no rash MS/Extremity: Pulses equal, no cyanosis, neurovascular intact, FROM Neuro: COAx4, GCS 15, strength 5/5, CN 2-12 intact, normal cerebellar exam, normal gait, Psych: Normal behavior, mood, and affect normal Results (Laboratory/Radiology) Laboratory/Radiology Laboratory Tests Test 03/24/25 03:13 Influenza Type A Antigen Negative For Type A Influenza Type B Antigen Negative For Type B SARS-CoV-2, RNA, NAAT NEGATIVE SARS CoV-2 ED Course ED Course Orders Procedure Category Date Status Time Covid Rna Naat LAB 03/24/25 Complete 03:17 Influenza Type A & B, LAB 7/27/25 Complete Rapid 03:17 Vital Signs Date Time Temp Pulse Resp B/P (MAP) Pulse Ox O2 Delivery O2 Flow Rate FiO2 03/24/25 03:17 97.3 83 18 118/68 98 Room Air Medical Decision Making MDM MDM: Differential diagnosis: Rationale: Tests considered and ordered secondary to shared decision making include: Previous outside records reviewed: Old ER visits. Risk of complication and/or morbidity or mortality of patient management: None Medications-Per medication reconciliation Need for hospitalization: Patient does not meet criteria for hospitalization. Need for emergency major/minor surgery: No There are no social concerns with this patient. Prescription drug management Prescriptions will include symptomatic care Patient's prior external medical records from other ER visits were reviewed by me as indicated. Prior testing and results from previous visits were reviewed. Prior tests were taken into account with medical decision making and resource utilization, independent historian/historians were used to obtain complete medic al history. I independently interpreted the test that were performed, results were reviewed by me and considered findings on radiology if ordered. Medical management and examination interpretation discussions were had by me with other qualified healthcare professionals as indicated for the patient's care. DX & DISP Disposition: Discharge Departure Impression: Primary Impression: Viral syndrome Condition: Stable Scripts Amoxicillin/Potassium Clav (Amox Tr-K Clv 875-125 mg Tab) 875 Mg-125 Mg Tablet 1 EACH PO BID for 5 Days, #10 TAB 0 Refills Prov: FRANCIE PAULINO MD 03/24/25 Albuterol Sulfate (Albuterol Sulfate) 2.5 Mg/0.5 Ml Vial.neb 2.5 MG IH Q6H for wheezing/sob, #20 INH 0 Refills Prov: FRANCIE PAULINO MD 03/24/25 Referrals: RAJIV STUBBS MD (PCP) FRANCIE PAULINO MD Mar 24, 2025 03:45
[2025-03-24 03:48] LABS: INFLUENZA TYPE A Negative For Type A (NEGATIVE); INFLUENZA TYPE B Negative For Type B (NEGATIVE)
[2025-03-24] MEDS ORDERED: AMOX1TAB16 PO (04:26)
[2025-03-24] MEDS ORDERED: AUD IH (04:26)
[2025-03-24 04:40] VITALS: BP 123/69; PULSE 84; RESP 20; TEMP 97.6; O2SAT 98
== END 2025-03-24 04:41 | disposition home or self-care (01) ==
LOC: EDH 03:15
DX: B34.9 Viral infection, unspecified (principal); E78.00 Pure hypercholesterolemia, unspecified; I10 Essential (primary) hypertension; Z20.822 Contact with and (suspected) exposure to COVID-19; Z79.899 Other long term (current) drug therapy; Z90.49 Acquired absence of other specified parts of digestive tract
CPT/HCPCS: 87635; 87804; 99283

== ENCOUNTER 2025-05-18 19:47 | Emergency (ER) | payer MEDICAID ==
[~2025-05-18] VITALS: Ht 172.7 cm; Wt 106.1 kg
[~2025-05-18 19:47] MED LIST changes: +AUD IH
[2025-05-18] MEDS: HYDROcodone/APAP 5/325 1 TAB TABLET PO ONE (20:39)
[2025-05-18 20:49] VITALS: BP 112/68; PULSE 71; RESP 18; TEMP 97.5; O2SAT 99
--- NOTE | 2025-05-18 20:52 | HMCIMG ---
EXAM: CR right ankle, 3 View. CLINICAL HISTORY: FALL COMPARISON: None provided. FINDINGS: BONES: No acute fracture or aggressive appearing osseous lesion. Small to moderate plantar calcaneal spur. JOINTS: The joint spaces appear within normal limits. No dislocation. No radiographic evidence of a joint effusion. SOFT TISSUES: The soft tissues are unremarkable. IMPRESSION: No acute osseous abnormality. /[place]
[2025-05-18] MEDS ORDERED: KETO10TA2 PO (21:00)
--- NOTE | 2025-05-18 21:01 | ERN ---
General Chief Complaint: FOOT INJURY/PAIN Stated Complaint: RT HEEL Time Seen by MD: 19:49 Time Seen by Midlevel: 19:49 Source: patient History of Present Illness Initial Comments 54-year-old female presenting to the emergency department right ankle pain following a mechanical ground level fall denies any other injuries. Allergies: Coded Allergies: No Known Allergies (Verified Allergy, Unknown, 08/17/21) Home Meds Active Scripts Amoxicillin/Potassium Clav (Amox Tr-K Clv 875-125 mg Tab) 875 Mg-125 Mg Tablet, 1 EACH PO BID for 5 Days, #10 TAB 0 Refills Prov:FRANCIE PAULINO MD 03/24/25 Albuterol Sulfate (Albuterol Sulfate) 2.5 Mg/0.5 Ml Vial.neb, 2.5 MG IH Q6H for wheezing/sob, #20 INH 0 Refills Prov:FRANCIE PAULINO MD 03/24/25 Amoxicillin/Potassium Clav (Amox Tr-K Clv 875-125 mg Tab) 875 Mg-125 Mg Tablet, 1 TAB PO BID for 10 Days, #20 TAB 0 Refills Prov:VINH PAUL DO 07/24/24 Methylprednisolone (Medrol) 4 Mg Tab.ds.pk, 1 TAB PO AD for 6 Days, #21 TAB 0 Refills 6 on day 1 then reduce by one tablet daily until gone Prov:CARLINE ENGLE 06/08/24 Guaifenesin/Pseudoephedrne HCl (Mucinex D ER 1,200-120 mg Tab) 1,200 Mg-120 Mg Tab.er.12h, 1 TAB PO BID for 10 Days, #20 TAB 0 Refills Prov:CARLINE ENGLE 06/08/24 Benzonatate (Tessalon Perles) 100 Mg Cap, 100 MG PO TID for cough for 10 Days, #30 CAP 0 Refills Prov:CARLINE ENGLE 06/08/24 Azithromycin (Azithromycin) 250 Mg Tablet, 1 TAB PO AD for 5 Days, #6 TAB 0 Refills 2 the first day followed by 1 for days 2-5 Prov:CARLINE ENGLE 06/08/24 Azithromycin (Azithromycin) 250 Mg Tablet, 250 MG PO DAILY for 5 Days, #6 TAB Take 1 pack as directed. Prov:NEFTALI BASS [employer]CREW SUPERVISOR 4/30/24 Acetaminophen with Codeine (Acetaminophen-Cod #4 Tablet) 1 Each Tablet, 1 EACH PO TID, #18 TAB Prov:HOLLIS DOMÍNGUEZ MD 02/17/22 Ciprofloxacin HCl (Cipro) 500 Mg Tablet, 1 TAB PO BID for 7 Days, #14 TAB 0 Refills Prov:PAT FRANCES MD 09/01/21 Famotidine (Pepcid) 20 Mg Tablet, 20 MG PO BID, #20 TAB 0 Refills Prov:PAT FRANCES MD 09/01/21 Reported Medications Sertraline HCl (Zoloft) 20 Mg/1 Ml Oral.conc, 20 MG PO DAILY, ML 08/18/21 Past Medical History Past Medical History: High Cholesterol, Hypertension Past Surgical History: Cholecystectomy Family History Family History: Negative Social History Social History: Negative, Lives with family Female( History) History: Not Applicable ROS Dictation CONSTITUTIONAL: Negative except for HPI HEAD/FACE: Negative except for HPI EENT: Negative except for HPI RESPIRATORY: Negative except for HPI GASTROINTESTINAL/ABDOMINAL: Negative except for HPI GENITOURINARY: Negative except for HPI MUSCULOSKELETAL: Negative except for HPI INTEGUMENTARY: Negative except for HPI NEUROLOGICAL/PSYCH: Negative except for HPI HEMATOLOGIC/LYMPHATIC: Negative except for HPI All Systems Negative, Except as noted above. 13 point review of systems assessed and all negative except for above. Physical Exam Physical Exam Dictation Vital Signs reviewed General Appearance: Alert, oriented x 3, no acute distress, well developed, nourished. Head and Face: non-traumatic. Eyes: PERRL, pink conjunctivas, eyelid no trauma, anterior chamber with arcus senilis. Ears: Pinnas intact and no signs of trauma or erythema ear canals clear and no discharge TM no erythema Nose: No discharge, no bleeding. Oropharynx: Mouth normal, tongue pink, pharynx clear,no erythema, tonsils no exudates, no abscesses noted, mucous membrane moist Neck: Supple, non-tender, no thyromegaly, no masses, no JVD, no bruits Breast:Deferred Chest:No tenderness, no crepitus, no paradoxical movement, no retractions Lungs:Clear, well-ventilated, symmetric, no rales, no wheezing, no rhonchi, no stridor, good breath sounds bilaterally Heart: Regular rate, regular rhythm, no murmur, no gallops Vascular: no peripheral edema, Abdomen: Soft, positive bowel sounds, nondistended, no guarding, nontender, no rebound, no masses no hepatomegaly, no splenomegaly, no England's sign, no hernias. Rectal: Deferred Genital: Deferred Neurological: Normal speech, motor function intact, sensory function intact Musculoskeletal: Neck nontender, full range of motion, back nontender, full range of motion, Extremities: nontender, full range of motion Skin: Color pink, dry, no turgor, no rash, no lacerations, no abrasions, no contusions. Lymphatic: Deferred MDM MDM: Differential diagnosis: Ankle fracture, ankle sprain, ankle dislocation There are no social concerns with this patient. Prescription drug management Prescriptions will include: Toradol Medical management and examination interpretation discussions were had by me with other qualified healthcare professionals as indicated for the patient's care. ED Course Orders Procedure Category Date Status Time Ankle Comp 3vws Rt RAD 05/18/25 Resulted 20:00 Ketorolac PHA 05/18/25 Complete Tromethamine 30mg/Ml 20:30 Hydrocodone/Apap PHA 05/18/25 Complete 5/325 ([place] 5/325mg) 20:30 Current Medications Medications (Trade) Dose Ordered Sig/Nils Route PRN Reason Start Time Stop Time Status Last Admin Dose Admin Acetaminophen/ Hydrocodone Bitart (NORco 5/325MG) 1 tab ONCE ONCE PO 05/18/25 20:30 05/18/25 20:31 DC 05/18/25 20:39 Ketorolac Tromethamine (toRADol) 30 mg ONCE ONCE IM 05/18/25 20:30 05/18/25 20:31 DC 05/18/25 20:39 Vital Signs Date Time Temp Pulse Resp B/P (MAP) Pulse Ox O2 Delivery O2 Flow Rate FiO2 05/18/25 20:49 97.5 71 18 112/68 99 Room Air* 0 21 05/18/25 20:01 97.9 78 19 127/79 100 Room Air* 0 21 05/18/25 19:49 97.2 77 18 130/73 98 Room Air DX & DISP Disposition: Discharge Departure Impression: Primary Impression: Right ankle sprain Condition: Stable Scripts Ketorolac Tromethamine (Ketorolac Tromethamine) 10 Mg Tablet 1 TAB PO BID for pain for 5 Days, #10 TAB 0 Refills Prov: CARLINE ENGLE 05/18/25 Referrals: RAJIV STUBBS MD (PCP) Time of Disposition: 20:57 I have reviewed the case, and I agree with, Diagnosis and Plan I performed the substantive portion of the visit. I have reviewed and personally made and approve the management plan that is documented in the note by myself or the BRUCE. I acknowledge for responsibility for the patient's management plan. CARLINE ENGLE May 18, 2025 21:01
== END 2025-05-18 21:12 | disposition home or self-care (01) ==
LOC: EDH 19:47
DX: S93.401A Sprain of unspecified ligament of right ankle, initial encounter (principal); E78.00 Pure hypercholesterolemia, unspecified; I10 Essential (primary) hypertension; Z79.891 Long term (current) use of opiate analgesic; Z79.899 Other long term (current) drug therapy; Z90.49 Acquired absence of other specified parts of digestive tract; W18.39XA Other fall on same level, initial encounter; Y93.89 Activity, other specified; Y92.89 Other specified places as the place of occurrence of the external cause; Y99.8 Other external cause status
CPT/HCPCS: 99283; 73610; 96372; J1885